=== PATIENT | female | born 1995 | race African-American/Black ===

== ENCOUNTER 2016-12-14 17:24 | Emergency (ER) | payer MEDICAID, OTHER ==
[~2016-12-14] VITALS: Ht 142.2 cm; Wt 45.0 kg
[~2016-12-14 17:24] MED LIST: ZOFR4TAB3 SL
[2016-12-14 17:26] VITALS: BP 117/59; PULSE 115; TEMP 98.8; O2SAT 100
[2016-12-14] MEDS ORDERED: SODIUM CHLOR 0.9% 1000 ML INJ 1,000 ML IV ONE (17:53)
[2016-12-14 18:43] LABS: AUTOMATED NEUTROPHIL # 6.5 TH/MM3 (1.8-7.7); BASOPHIL % 0.6 % (0.0-2.0); EOSINOPHIL % 0.6 % (0.0-4.0); HEMATOCRIT 30.7 % (35.0-46.0); HEMO FLAGS DIFF FINAL; LYMPH % 7.7 % (9.0-44.0); LYMPHOCYTE # 0.6 TH/MM3 (1.0-4.8); MEAN CELL VOLUME 78.7 FL (80.0-100.0); MEAN CORPUSCULAR HEMOGLOBIN 25.5 PG (27.0-34.0); MEAN CORPUSCULAR HGB CONC 32.5 % (32.0-36.0); MONO % 7.7 % (0.0-8.0); NEUT % 83.4 % (16.0-70.0); PLATELET COUNT 221 TH/MM3 (150-450); RED CELL DISTRIBUTION WIDTH 14.2 % (11.6-17.2); WHITE BLOOD COUNT 7.8 TH/MM3 (4.0-11.0)
[2016-12-14 18:47] LABS: BLOOD, URINE NEG (NEG); COMMENT (UR) CULT NOT INDICATED; CULTURE IF INDICATED CULT NOT INDICATED; GLUCOSE,URINE NEG (NEG); KETONE, URINE 150 mg/dL (NEG); MUCUS URINE FEW /lpf (OCC); NITRITE,URINE NEG (NEG); PH, URINE 6.5 (5.0-8.5); SQUAMOUS EPITHELIAL CELL URINE <1 /hpf (0-5); URINE COLOR YELLOW (YELLW/STRAW)
[2016-12-14] MEDS ORDERED: DOCO200C PO (18:56)
--- NOTE | 2016-12-14 18:56 | PD ---
HPI Chief Complaint: Related Problem Time Seen by Provider: 17:34 Travel History International Travel<30 days: No Contact w/Intl Traveler<30days: No Traveled to known affect area: No History of Present Illness HPI A 21 year-old woman, presents emergency room complaining that she feels poorly, had some spotting today, has only urinated twice today and she normally does to say lot, and has had headaches and body aches. She says she is but does not how far along. Last menstrual periods 3-4 months ago. No history of previous similar . History Past Medical History Medical History: Denies Significant Hx Tetanus Vaccination: > 5 Years Influenza Vaccination: No LMP: IRREGULAR Menopausal: No : 1 Para: 0 Social History Alcohol Use: No Tobacco Use: No Allergies-Medications (Allergen,Severity, Reaction): Coded Allergies: No Known Allergies (Unverified , 12/14/16) Reported Meds & Prescriptions Reported Meds & Active Scripts Active Dha (Docosahexaenoic Acid) 200 Mg Cap 1 Tab PO DAILY 30 Days Review of Systems Except as stated in HPI: all other systems reviewed are Neg Physical Exam Narrative GENERAL: 19 year-old woman, no acute distress. SKIN: Focused skin assessment warm/dry. HEAD: Atraumatic. Normocephalic. EYES: Pupils equal and round. No scleral icterus. No injection or drainage. ENT: No nasal bleeding or discharge. Mucous membranes pink and moist. NECK: Trachea midline. No JVD. CARDIOVASCULAR: Regular rate and rhythm. No murmur appreciated. RESPIRATORY: No accessory muscle use. Clear to auscultation. Breath sounds equal bilaterally. GASTROINTESTINAL: Abdomen gravid, soft, no tenderness. : Normal external female genitalia. Bimanual exam shows cervix is closed. MUSCULOSKELETAL: No obvious deformities. No clubbing. No cyanosis. No edema. Data Data Last Documented VS Vital Signs Date Time Temp Pulse Resp B/P Pulse Ox O2 Delivery O2 Flow Rate FiO2 12/14/16 17:26 98.8 115 117/59 100 Orders Beta Hcg (Quant/Titer) (12/14/16 17:53) Complete Blood Count With Diff (12/14/16 17:53) Basic Metabolic Panel (Bmp) (12/14/16 17:53) Complete Rh (12/14/16 17:53) Urinalysis - C+S If Indicated (12/14/16 17:53) Iv Access Insert/Monitor (12/14/16 17:53) Sodium Chlor 0.9% 1000 Ml Inj (Ns 1000 M (12/14/16 17:53) Ed Poc Ultrasound (12/14/16 17:53) Gc And Chlamydia Pcr (12/14/16 18:52) Labs Laboratory Tests Test 12/14/16 18:15 White Blood Count 7.8 TH/MM3 Red Blood Count 3.90 MIL/MM3 Hemoglobin 10.0 GM/DL Hematocrit 30.7 % Mean Corpuscular Volume 78.7 FL Mean Corpuscular Hemoglobin 25.5 PG Mean Corpuscular Hemoglobin 32.5 % Concent Red Cell Distribution Width 14.2 % Platelet Count 221 TH/MM3 Mean Platelet Volume 8.5 FL Neutrophils (%) (Auto) 83.4 % Lymphocytes (%) (Auto) 7.7 % Monocytes (%) (Auto) 7.7 % Eosinophils (%) (Auto) 0.6 % Basophils (%) (Auto) 0.6 % Neutrophils # (Auto) 6.5 TH/MM3 Lymphocytes # (Auto) 0.6 TH/MM3 Monocytes # (Auto) 0.6 TH/MM3 Eosinophils # (Auto) 0.0 TH/MM3 Basophils # (Auto) 0.0 TH/MM3 CBC Comment DIFF FINAL Differential Comment Urine Color YELLOW Urine Turbidity CLEAR Urine pH 6.5 Urine Specific [place] 1.022 Urine Protein NEG mg/dL Urine Glucose (UA) NEG mg/dL Urine Ketones 150 mg/dL Urine Occult Blood NEG Urine Nitrite NEG Urine Bilirubin NEG Urine Urobilinogen LESS THAN 2.0 MG/DL Urine Leukocyte Esterase TRACE Urine RBC 1 /hpf Urine WBC 2 /hpf Urine Squamous Epithelial <1 /hpf Cells Urine Mucus FEW /lpf Microscopic Urinalysis Comment CULT NOT INDICATED Sodium Level 133 MEQ/L Potassium Level 3.3 MEQ/L Chloride Level 102 MEQ/L Carbon Dioxide Level 20.9 MEQ/L Anion Gap 10 MEQ/L Blood Urea Nitrogen 7 MG/DL Creatinine 0.40 MG/DL Estimat Glomerular Filtration 242 ML/MIN Rate Random Glucose 107 MG/DL Calcium Level 8.6 MG/DL Blood Type A POSITIVE Rho(D) Type POSITIVE MDM Medical Decision Making Medical Screen Exam Complete: Yes Emergency Medical Condition: Yes Interpretation(s) LABS: CBC remarkable for mild anemia. CMP unremarkable HCG UA was some ketones, otherwise unremarkable. Differential Diagnosis Dehydration, threatened AB, , weak, other Narrative Course Medical decision making This a 21 year-old woman, looks well, eating [employer] fries I walk in the room. States she is but does not far long. She has a Thursday of symptoms including not urinating as much as she feels like she should, some spotting, some muscle aches. Bedside ultrasound was performed shows about a 15 week , good heart movement, good movement. Bimanual exam shows a closed cervix. Recommend she follow up with OB. Diagnosis Primary Impression: Additional Impression: Dehydration Additional Instructions: Take vitamins as prescribed. Follow-up with an director of student financial services in the next one to 2 weeks for care. Return to the emergency department for any new or worsening symptoms. Med/Other Pt SpecificInfo: Prescription(s) given Scripts Docosahexaenoic Acid ( Dha)200 Mg Cap1 Tab PO DAILY 30 Days Prov:Ren Mooney MD 12/14/16 Disposition: 01 DISCHARGE HOME Condition: Stable Ren Mooney MD Dec 14, 2016 18:56
[2016-12-14 18:57] LABS: BICARBONATE 20.9 MEQ/L (21.0-32.0); POTASSIUM 3.3 MEQ/L (3.5-5.1)
[2016-12-14 21:58] LABS: CHLAMYDIA PCR DETECTED (NOT DETECT); NEISSERIA PCR NOT DETECTED (NOT DETECT)
== END 2016-12-14 20:24 | disposition home or self-care (01) ==
LOC: NEPC 17:24
DX: O26.892 Other specified pregnancy related conditions, second trimester (principal); E86.0 Dehydration; Z3A.14 14 weeks gestation of pregnancy
CPT/HCPCS: 80048; 81001; 84702; 85025; 86901; 87491; 87591; 99284; J7030

== ENCOUNTER 2017-01-22 10:31 | Emergency (ER) | payer MEDICAID, OTHER ==
[~2017-01-22 10:31] MED LIST changes: +DOCO200C PO; -ZOFR4TAB3 SL
[2017-01-22 10:58] VITALS: BP 104/64; PULSE 92
[2017-01-22 11:00] VITALS: TEMP 98.1
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
== END 2017-01-22 13:00 | disposition home or self-care (01) ==
LOC: HOBED 10:31
DX: O26.892 Other specified pregnancy related conditions, second trimester (principal); R10.9 Unspecified abdominal pain; Z3A.20 20 weeks gestation of pregnancy; Y04.0XXA Assault by unarmed brawl or fight, initial encounter; Y93.9 Activity, unspecified; Y92.9 Unspecified place or not applicable; Y99.9 Unspecified external cause status
CPT/HCPCS: 76805

== ENCOUNTER 2017-02-12 13:22 | Emergency (ER) | payer MEDICAID ==
[2017-02-12 14:15] VITALS: PULSE 105
[2017-02-12 14:20] VITALS: PULSE 104
[2017-02-12 14:26] LABS: BACTERIA, URINE RARE /hpf; BLOOD, URINE NEG (NEG); COMMENT (UR) CULT NOT INDICATED; CULTURE IF INDICATED CULT NOT INDICATED; GLUCOSE,URINE NEG (NEG); KETONE, URINE NEG (NEG); MUCUS URINE FEW /lpf (OCC); NITRITE,URINE NEG (NEG); SQUAMOUS EPITHELIAL CELL URINE 2 /hpf (0-5); URINE COLOR LIGHT-YELLOW (YELLW/STRAW)
[2017-02-12 14:27] LABS: AMPHETAMINE, URINE NEG (NEG); BARBITURATES, URINE NEG (NEG); COCAINE, URINE NEG (NEG)
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
[2017-02-12 18:00] LABS: CHLAMYDIA PCR DETECTED (NOT DETECT); NEISSERIA PCR NOT DETECTED (NOT DETECT)
[2017-02-12] MEDS ORDERED: AZIT500T2 PO (18:20)
[2017-02-16 09:20] LABS: BATH SALTS (MDPV) UR NEG (NEG); ECSTASY (MDMA) UR NEG (NEG); GABAPENTIN UR NEG (NEG); HEROIN (6-ACETYLMORPHINE) UR NEG (NEG); HYDROMORPHONE U NEG (NEG); K2 SPICE UR NEG (NEG); OBMETHADONE UR NEG (NEG); OXYCODONE (PERCODAN) NEG (NEG); PHENCYCLIDINE URINE NEG (NEG)
== END 2017-02-12 17:13 | disposition home or self-care (01) ==
LOC: HOBED 13:22
DX: O46.92 Antepartum hemorrhage, unspecified, second trimester (principal); Z3A.23 23 weeks gestation of pregnancy
CPT/HCPCS: 76815; 76816; 80307; 81001; 87210; 87491; 87591; 99284; G0481